=== PATIENT | male | born 1965 | race Caucasian/White ===

== ENCOUNTER 2017-05-02 20:49 | Emergency (ER) | payer SELFPAY ==
[~2017-05-02] VITALS: Ht 162.6 cm; Wt 75.0 kg
[2017-05-02 20:52] VITALS: Ht 162.6 cm; Wt 75.0 kg
--- NOTE | 2017-05-02 21:45 | ERD ---
ER Documentation Chief Complaint Date/Time DATE: 05/02/17 TIME: 21:44 Chief Complaint bib ambulance, etoh intoxication HPI 51-year-old male brought in by Emily for EtOH intoxication. Patient ambulatory at the scene. No evidence of trauma. Patient admits to drinking. ROS All systems reviewed and are negative except as per history of present illness. Allergies Allergies: Coded Allergies: No Known Allergy (Unverified , 05/02/17) Physical Exam Vitals Vital Signs Date Time Temp Pulse Resp B/P Pulse Ox O2 Delivery O2 Flow Rate FiO2 05/02/17 20:52 97.8 96 20 136/86 97 Physical Exam Const: [] Head: Atraumatic Eyes: Normal Conjunctiva ENT: Normal External Ears, Nose and Mouth. Neck: Full range of motion..~ No meningismus. Resp: Clear to auscultation bilaterally Cardio: Regular rate and rhythm, no murmurs Abd: Soft, non tender, non distended. Normal bowel sounds Skin: No petechiae or rashes Back: No midline or flank tenderness Ext: No cyanosis, or edema Neur: Awake and alert Psych: Normal Mood and Affect Procedures/MDM Medical decision-makin-year-old male with acute alcohol intoxication. Alert and oriented 4 with goal oriented speech non-ataxic gait with ability to negotiate the community. Patient is stable for outpatient management. Advised to stop drinking. Departure Diagnosis: Primary Impression: Alcoholic intoxication Complication of substance-induced condition: uncomplicated Qualified Code: F10.120 - Alcoholic intoxication, uncomplicated Condition: Stable EMILY MONTEIRO May 02, 2017 21:45
== END 2017-05-02 21:50 | disposition home or self-care (01) ==
LOC: E/R 20:49
DX: F10.120 Alcohol abuse with intoxication, uncomplicated (principal)
CPT/HCPCS: 99283

== ENCOUNTER 2017-05-05 15:12 | Emergency (ER) | END 2017-05-05 18:36 | disposition home or self-care (01) | DX: T51.91XA Toxic effect of unspecified alcohol, accidental (unintentional), initial encounter (principal); R07.9 Chest pain, unspecified ==